=== PATIENT | female | born 1995 | race African-American/Black ===

== ENCOUNTER 2022-06-24 13:17 | Emergency (ER) | payer OTHER ==
--- OUTSIDE RECORDS SUMMARY | 2022-06-24 13:21 | XMS REPORT | Continuity of Care Document ---
:1995 Author Organization [facility] t Address [address] [facility] [address] [place] [id number] Care Team Providers Name Role Phone Pcp, Patient Does Not Have A Primary Care Physician [phone] YUMIKO MISTRY Attending Clinician Unavailable Jackie SHINE, Jennifer Attending Clinician Unavailable Miles REGALADO, Felicia Kaur Attending Clinician Mercedes SOUTH, Reina Pierce Attending Clinician Jerson SOUTH, Cinda Collins Attending Clinician Doctor Unassigned, [place] Attending Clinician Unavailable Jimmy Perez DO Attending Clinician Sherwin SOUTH, Coty Rodriguez Attending Clinician Lab, Adc Fam Pob I Attending Clinician Unavailable Yolanda Chowdhury Attending Clinician YOLANDA MARSH Attending Clinician Unavailable Bri Beaulieu MD Attending Clinician BRI BEAULIEU Attending Clinician Unavailable Cinda Arthur MD Admitting Clinician Payers Payer Name Policy Type Policy Number Effective Date Expiration Date S ourkrysta MEDICAID PENDING PENDING 2020 00:00:00 [place] [id number] 2019 WOMEN 00:00:00 Problems Condition Condition Condition Status Onset Resolution Last Treating Co mments Source Name Details Category Date Date Treatment Clinician Date Abdominal Abdominal Disease Active 2020-04 Uni vers pain pain 0-07 ity of 00:00: [place] [address] Medical Branch Pelvic Pelvic Disease Active 2020-04 Univers pain pain 0-06 ity of 00:00: [place] [address] Medical Branch Hydrosalpi Hydrosalpi Disease Active 2020-04 U nivers nx nx 0-06 ity of 00:00: [place] 00 Medical Branch PID (acute PID (acute Disease Active 2020-04 U nivers pelvic pelvic 0-06 it[place] inflammat[place] disease) disease) Branch Other Other Disease Active Overview: Univer s specified specified 08-22 Formattin i ty of anemias anemias 00:00: g of this [place] 00 note Medical might be Branch different from the original. 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 Lump or Lump or Disease Active Univers mass in mass in 08-21 ity of breast breast 00:00: [place] 00 Medical Branch Other and Other and Disease Active Uni vers unspecifie unspecifie 08-21 it y of d ovarian d ovarian 00[place] cyst cyst 00 [facility] Branch Allergies, Adverse Reactions, Alerts Allergy Allergy Status Severity Reaction(s) Onset Inactive Treating Comm ents Source Name Type Date Date Clinician NO KNOWN Drug Active Univers ALLERGIE Class ity of S [facility] Social History Social Habit Start Date Stop Date Quantity Comments Source History of Cigarette Smoker Universi ty of tobacco use [facility] Exposure to Not sure [place] of SARS-CoV-2 [facility] (event) Branch Alcohol intake 2021-01-19 2021-01-19 Current University of 00:00:00 00:00:00 non-drinker of [facility] alcohol (finding) Branch Tobacco use and 2015-05-16 2015-05-16 Never used Universit y of exposure 00:00:00 00:00:00 [facility] Sex Ass[birth year] At [birth year] Universit y of 00:00:00 00:00:00 [facility] Smoking Status Start Date Stop Date Source Current every day smoker 2015-05-16 00:00:00 Uni versity of [facility] Medications Ordered Filled Start Stop Current Ordering Indication Dosage Frequency Signature Comments Components Source Medication Medication Date Date Medication? Clinician (SIG) Name Name ascorbic 2020-04 Yes 500mg 500 mg, Unive rs acid 0-08 Oral, ity of (vitamin C) 14:00: [place] (VITAMIN C) 00 First dose Me dical tablet 500 on Sun Branch mg 01/21/21 at 0900, Until Discontinu ed, Routine metroNIDAZO 2020-04 Yes 500mg 500 mg, Un lashell LE (FLAGYL) 0-08 Oral, ity of tablet 500 13:30: Q12H, [place] mg 00 First dose Medical on Sun Branch 01/21/21 at 0830, Until Discontinu ed, Routine
Reason for Anti-Infec tive: Documented Infection< br>Documen lara Infection Site: Pelvic
Duration of Therapy: Other (see Comments) ibuprofen 2020-04 Yes [id number] 600mg Take 1 U nivers 600 mg 0-08 tablet by ity of tablet 00:00: mouth [place] 00 every 6 Medical (six) Branch hours as needed for Pain (scale 1-3). ferrous 2020-04 Yes [id number] 325mg Take 1 Uni vers sulfate 0-08 tablet by ity of (IRON) 325 00:00: mouth [place] mg (65 mg 00 daily. Medical iron) Branch tablet ascorbic 2020-04 Yes [id number] 500mg Take 1 Un lashell acid, 0-08 tablet by ity of vitamin C, 00:00: mouth [place] (VITAMIN C) 00 daily. Medica l 500 mg Branch tablet ibuprofen 2020-04 Yes [id number] 600mg Take 1 U nivers 600 mg 0-08 tablet by ity of tablet 00:00: mouth [place] 00 every 6 Medical (six) Branch hours as needed for Pain (scale 1-3). ferrous 2020-04 Yes [id number] 325mg Take 1 Uni vers sulfate 0-08 tablet by ity of (IRON) 325 00:00: mouth [place] mg (65 mg 00 daily. Medical iron) Branch tablet ascorbic 2020-04 Yes [id number] 500mg Take 1 Un lashell acid, 0-08 tablet by ity of vitamin C, 00:00: mouth [place] (VITAMIN C) 00 daily. Medica l 500 mg Branch tablet doxycycline 2020-04- No [id number] 100mg Take 1 Univers hyclate 100 0-08 - capsule by i ty of mg capsule 00:00: 04:59 mouth [place] 00 :00 every 12 Medical (twelve) Branch hours for 13 days. metroNIDAZO 2020-04 No [id number] 500mg Take 1 Univers LE 500 mg 0-08 10-22 tablet by ity of tablet 00:00: 04:59 mouth [place] 00 :00 every 12 Medical (twelve) Branch hours for 13 days. doxycycline 2020-04- No [id number] 100mg Take 1 Univers hyclate 100 0-08 10-22 capsule by i ty of mg capsule 00:00: 04:59 mouth [place] 00 :00 every 12 Medical (twelve) Branch hours for 13 days. metroNIDAZO 2020-04- No [id number] 500mg Take 1 Univers LE 500 mg 0-08 10-22 tablet by ity of tablet 00:00: 04:59 mouth [place] 00 :00 every 12 Medical (twelve) Branch hours for 13 days. docusate 2020-04 No 100mg 100 mg, Univ ers (COLACE) 0-07 10-08 Oral, ity of capsule 100 22:45: 13:12 DAILY, [place] mg 00 :40 First dose Medical on [facility] Branch 01/20/21 at 1745, Until Discontinu ed, Routine oxyCODONE-a 2020-04 Yes 1{tbl} 1 tablet, Univers cetaminophe 0-07 Oral, ity of n 14:53: [facility], [place] (PERCOCET) 46 Starting Medic al 5-325 mg on [facility] Branch per tablet 01/20/21 at 1 tablet 0953, Until Discontinu ed, Routine, Pain (scale 7-10) ibuprofen 2020-04 Yes 600mg 600 mg, Univ ers (IBU) 0-07 Oral, ity of tablet 600 14:06: Q6HPRN, [place] mg 45 Starting Medical on [facility] Branch 01/20/21 at 0906, Until Discontinu ed, Routine, Pain (scale 4-6) acetaminoph 2020-04 Yes 650mg 650 mg, Un lashell en 0-07 Oral, ity of (TYLENOL) 14:06: Q6HPN, [place] tablet 650 13 Starting Medic al mg on [facility] Branch 01/20/21 at 0906, Until Discontinu ed, Routine, Pain (scale 1-3) doxycycline 2020-04 Yes 100mg 100 mg, Un lashell hyclate 0-07 Oral, ity of (Vibramycin 14:00: Q12H, [place] ) capsule 00 First dose Medi herlinda 100 mg (after Branch last reorder) on C[place] 01/20/21 at 0900, Until Discontinu ed, MIGUELITO
Reason for Anti-Infec tive: Empiric Therapy for Suspected Infection< br>Empiric Therapy Site: Pelvic
Duration of therapy: 72 hours ferrous 2020-04 Yes 325mg 325 mg, Univer s sulfate 0-07 Oral, TID ity of tablet 325 13:00: MEALS, [place] mg 00 First dose Medical on [place] Branch 01/20/21 at 0800, Until Discontinu ed, Routine cefOXitin 2020-04 Yes 2g 2 g, IV Unive rs in 0-07 Piggyback, ity of dextrose, 08:00: Q6H ABX, [place] iso-osm 00 First dose Medica l (MEFOXIN) 2 (after Branch gram/50 mL last DUPLEX BAG modificati 2 g on) on [place] 01/20/21 at 0300, Until Discontinu ed, Administer over 30 Minutes, 50 mL
Reas on for Anti-Infec tive: Empiric Therapy for Suspected Infection< br>Empiric Therapy Site: Pelvic
Duration of therapy: 72 hours NaCl 0.9% 2020-04 No 500mL at 999 Univ ers (NS) bolus 0-07 10-07 mL/hr, 500 it y of infusion 04:15: 03:16 mL, IV [place] 500 mL 00 :00 Infusion, Medical ONCE, 1 Branch dose, On Sun01/19/21 at 2315, STAT doxycycline 2020-04- No 100mg 100 mg, U nivers hyclate 0-07 10-07 Oral, ity of (Vibramycin 02:30: 02:07 ONCE, 1 [place] capsule 00 :00 dose, On Medica l 100 mg [facility] 01/19/21 at 2130, MIGUELITO
Re ason for Anti-Infec tive: Empiric Therapy for Suspected Infection< br>Empiric Therapy Site: Pelvic
Duration of therapy: 72 hours cefOXitin 2020-04- No 2g 2 g, IV Univ ers in 001-20 Piggyback, ity of dextrose, 02:30: 02:15 Q6H ABX, [place] iso-osm 00 :47 First dose Medica l (MEFOXIN) 2 on Sun Branch gram/50 mL 01/19/21 at DUPLEX BAG 2130, 2 g Until Discontinu ed, Administer over 30 Minutes, 50 mL
Reas on for Anti-Infec tive: Empiric Therapy for Suspected Infection< br>Empiric Therapy Site: Pelvic
Duration of therapy: 72 hours ondansetron 2020-04 Yes 4mg 4 mg, Slow Univers (ZOFRAN 0-07 IV Push, ity of (PF)) 02:14: Q6RN, [place] injection 4 56 Starting Medi herlinda mg on Sun Branch 01/19/21 at 2114, Until Discontinu ed, Routine, Nausea and Vomiting (N/V) ibuprofen 2020-04- No 800mg 800 mg, Uni vers (IBU) 001-20 Oral, ity of tablet 800 02:14: 14:06 Q8HPRN, [place] mg 44 :55 Starting Medical on Sun Branch 01/19/21 at 2114, Until [place] 01/20/21 at 0906, Routine, Pain (scale 1-3) oxyCODONE-a 2020-04- No 1{tbl} 1 tablet, Univers cetaminophe 001-20 Oral, ity of n 02:14: 14:53 [facility], [place] (PERCOCET) 03 :56 Starting Medic al 5-325 mg on Sun per tablet 01/19/21 at 1 tablet 2113, Until [place] 01/20/21 at 0953, Routine, Pain (scale 4-6), Pain (scale 7-10) FENTanyl PF 2020-04- No 50ug 50 mcg, Un lashell (SUBLIMAZE 001-20 Slow IV ity o f (PF)) 01:45: 01:01 Push, [place] injection 00 :00 ONCE, 1 Medical 50 mcg dose, On Branch Sun01/19/21 at 2045, Routine ketorolac 2020-04- No 30mg 30 mg, Unive rs (TORADOL) 0-06 10-06 Slow IV ity of injection 20:30: 19:34 Push, [place] 30 mg 00 :00 ONCE, 1 Medical dose, On Branch 01/19/21 at 1530, Routine
field artillery crewmember approving Restricted medication : FELICIA CALDERON NaCl 0.9% 2020-04- No 500mL at 999 Univ ers (NS) bolus 0- 10-06 mL/hr, 500 it y of infusion 20:30: 20:20 mL, IV [place] 500 mL 00 :00 Piggyback, Medical ONCE, 1 Branch dose, On Sun01/19/21 at 1530, STAT iopamidol 2020-04- No [id number] 100mL 100 mL, Univers (ISOVUE 0- Intravenou ity o f 370-500 mL) 20:02: 20:02 s, ONCE, 1 [place] injection 00 :00 dose, On Medica l 100 mL Wed Branch 01/19/21 at 1515, Routine chlorhexidi Yes [id number] 15mL Swish and Univers ne 0.12 % 8-04 spit out ity of mouthwash 00:00: 15 mL 2 [place] 00 (two) Medical times Branch daily. acetaminoph 0 Yes [id number] 1{tbl} Take 1 Un lashell en-codeine 8-04 tablet by ity of 300-30 mg 00:00: mouth [place] tablet 00 every 4 Medical (four) Branch hours as needed for Pain (scale 7-10). Indication s: acute pain chlorhexidi 0 Yes [id number] 15mL Swish and Univers ne 0.12 % 8-04 spit out ity of mouthwash 00:00: 15 mL 2 [place] 00 (two) Medical times Branch daily. acetaminoph 0 Yes [id number] 1{tbl} Take 1 Un lashell en-codeine 8-04 tablet by ity of 300-30 mg 00:00: mouth [place] tablet 00 every 4 Medical (four) Branch hours as needed for Pain (scale 7-10). Indication s: acute pain chlorhexidi 2020- No [id number] 15mL Swish and Univers ne 0.12 % 8-04 10-06 spit out ity o f mouthwash 00:00: 00:00 15 mL 2 [place] 00 :00 (two) Medical times Branch daily. acetaminoph 2020- No [id number] 1{tbl} Take 1 U nivers en-codeine 11-17 tablet by ity of 300-30 mg 00:00: 00:00 mouth [place] tablet 00 :00 every 4 Medical (four) Branch hours as needed for Pain (scale 7-10). Indication s: acute pain clindamycin 2020- No [id number] 300mg Take 2 Univers 150 mg 11-17 08-12 capsules ity of capsule 00:00: 04:59 by mouth 4 [place] 00 :00 (four) Medical times Branch daily for 7 days. iohexol 2019- No 120mL 120 mL, Unive rs (OMNIPAQUE 11-07 Intravenou it y of 350 17:45: 17:28 s, ONCE, 1 [place] BULK-150 00 :00 dose, Sat Medica l mL) 11/08/19 at Branch injection 1245, 120 mL Routine ondansetron 2019- No 4mg 4 mg, Slow Univers (ZOFRAN 11-07 IV Push, ity of (PF)) 16:45: 15:53 ONCE, 1 [place] injection 4 00 :00 dose, Sat Med ical mg 11/08/19 at Branch 1145, MIGUELITO ketorolac 2019- No 15mg 15 mg, Unive rs (TORADOL) 11-07 Slow IV ity of injection 16:45: 15:53 Push, [place] 15 mg 00 :00 ONCE, 1 Medical dose, Sat Branch 11/08/19 at 1145, MIGUELITO
Fa culty member approving Restricted medication : COTY MOROCHO morpHINE 2019- No 4mg 4 mg, Slow Un lashell injection 4 11-07 IV Push, ity of mg 16:45: 15:53 ONCE, 1 [place] 00 :00 dose, Sat Medical 11/08/19 at Branch 1145, STAT acetaminoph 2019- No 650mg 650 mg, U nivers en 11-07 Oral, ity of (TYLENOL) 16:45: 15:52 ONCE, 1 [place] tablet 650 00 :00 dose, Sat Medi herlinda mg 11/08/19 at Branch 1145, MIGUELITO cefTRIAXone 2019-2019- No 1000mg 1,000 mg, Univers (ROCEPHIN) 11-07 07-25 IV ity of 1,000 mg in 16:45: 16:34 [place], [place] NaCl 0.9% 00 :00 ONCE, 1 Medical (NS) 50 mL dose, Sat Bran ch MINI-BAG 11/08/19 at 1145, 50 mL
Reas on for Anti-Infec tive: Empiric Therapy for Suspected Infection< br>Empiric Therapy Site: Urine
D uration of therapy: 72 hours NaCl 0.9% 2019- No 30mL/kg at 999 Un lashell (NS) bolus 11-07 07-25 mL/hr, ity of infusion 15:45: 19:57 1,482 mL [place] 1,482 mL 00 :00 (30 mL/kg Medica l ?49.4 kg), Branch IV Infusion, ONCE, 1 dose, 11/08/19 at 1045, MIGUELITO ondansetron 2020-0 Yes [id number] 4mg Take 1 Univers 4 mg tablet 7-25 tablet by ity of 00:00: mouth [place] 00 every 8 Medical (eight) Branch hours as needed for Nausea and Vomiting (N/V). ondansetron 2020-0 Yes [id number] 4mg Take 1 Univers 4 mg tablet 7-25 tablet by ity of 00:00: mouth [place] 00 every 8 Medical (eight) Branch hours as needed for Nausea and Vomiting (N/V). ondansetron 2020-0 Yes [id number] 4mg Take 1 Univers 4 mg tablet 7-25 tablet by ity of 00:00: mouth [place] 00 every 8 Medical (eight) Branch hours as needed for Nausea and Vomiting (N/V). ondansetron 2020-0 2020- No [id number] 4mg Take 1 Univers 4 mg tablet 7-25 10-06 tablet by it y of 00:00: 00:00 mouth [place] 00 :00 every 8 Medical (eight) Branch hours as needed for Nausea and Vomiting (N/V). levoFLOXaci 2020-0 2019- No [id number] 500mg Take 1 Univers n 500 mg 7-25 08-05 tablet by ity o f tablet 00:00: 04:59 mouth [place] 00 :00 every 24 Medical (twenty-fo Branch ur) hours for 10 days. traMADol 50 2020-0 2020- No [id number] 50mg Take 1 Uni vers mg tablet 11-07 tablet by ity of 00:00: 04:59 mouth [place] 00 :00 every 6 Medical (six) Branch hours as needed (pain) for up to 7 days. Indication s: acute pain HYDROcodone 2020-0 2020- No 1{tbl} 1 tablet, Univers -acetaminop 6-16 -16 Oral, ONCE i ty of hen (NORCO) 19:30: 18:36 NOW, 1 [place] 10-325 mg 00 :00 dose, Tue Medic al tablet 1 09/30/19 at [facility] h tablet 1430, Routine ibuprofen 2020-0 Yes [id number] 800mg Take 1 Univers 800 mg 6-16 tablet by ity of tablet 00:00: mouth [place] 00 every 8 Medical (eight) Branch hours as needed for Pain (scale 4-6). ibuprofen 2020-0 Yes [id number] 800mg Take 1 Univers 800 mg 6-16 tablet by ity of tablet 00:00: mouth [place] 00 every 8 Medical (eight) Branch hours as needed for Pain (scale 4-6). amoxicillin 2020-0 Yes [id number] 500mg Take 1 Univers 500 mg 6-16 capsule by ity of capsule 00:00: mouth 3 [place] 00 (three) Medical times Branch daily. acetaminoph 2020-0 Yes [id number] 1{tbl} Take 1 Univers en-codeine 6-16 tablet by ity of (TYLENOL-CO 00:00: mouth [place] DEINE #3) 00 every 4 Medical 300-30 mg (four) Branch tablet hours as needed for Pain (scale 7-10). ibuprofen 2020-0 Yes [id number] 800mg Take 1 Univers 800 mg 6-16 tablet by ity of tablet 00:00: mouth [place] 00 every 8 Medical (eight) Branch hours as needed for Pain (scale 4-6). amoxicillin 2020-0 Yes [id number] 500mg Take 1 Univers 500 mg 6-16 capsule by ity of capsule 00:00: mouth 3 [place] 00 (three) Medical times Branch daily. acetaminoph 2020-0 Yes [id number] 1{tbl} Take 1 Univers en-codeine 6-16 tablet by ity of (TYLENOL-CO 00:00: mouth [place] DEINE #3) 00 every 4 Medical 300-30 mg (four) Branch tablet hours as needed for Pain (scale 7-10). ibuprofen 2020-0 Yes [id number] 800mg Take 1 Univers 800 mg 6-16 tablet by ity of tablet 00:00: mouth [place] 00 every 8 Medical (eight) Branch hours as needed for Pain (scale 4-6). amoxicillin 2020-0 Yes [id number] 500mg Take 1 Univers 500 mg 6-16 capsule by ity of capsule 00:00: mouth 3 [place] 00 (three) Medical times Branch daily. acetaminoph 2020-0 Yes [id number] 1{tbl} Take 1 Univers en-codeine 6-16 tablet by ity of (TYLENOL-CO 00:00: mouth [place] DEINE #3) 00 every 4 Medical 300-30 mg (four) Branch tablet hours as needed for Pain (scale 7-10). ibuprofen 2020-0 Yes [id number] 800mg Take 1 Univers 800 mg 6-16 tablet by ity of tablet 00:00: mouth [place] 00 every 8 Medical (eight) Branch hours as needed for Pain (scale 4-6). ibuprofen 2020-0 Yes [id number] 800mg Take 1 Univers 800 mg 6-16 tablet by ity of tablet 00:00: mouth [place] 00 every 8 Medical (eight) Branch hours as needed for Pain (scale 4-6). ibuprofen 2020-0 2020- No [id number] 800mg Take 1 Univers 800 mg 6-16 10-06 tablet by ity of tablet 00:00: 00:00 mouth [place] 00 :00 every 8 Medical (eight) Branch hours as needed for Pain (scale 4-6). amoxicillin 2020-0 2020- No [id number] 500mg Take 1 Univers 500 mg 6-16 07-25 capsule by ity of capsule 00:00: 00:00 mouth 3 [place] 00 :00 (three) Medical times Branch daily. acetaminoph 2020-0 2020- No [id number] 1{tbl} Take 1 Univers en-codeine 6-16 07-25 tablet by ity of (TYLENOL-CO 00:00: 00:00 mouth [place] DEINE #3) 00 :00 every 4 Medical 300-30 mg (four) Branch tablet hours as needed for Pain (scale 7-10). Immunizations Ordered Filled Immunization Date Status Comments Sourc e Immunization Name Name [facility] 2010-11-21 Completed University of 00:00:00 [facility] 2010-11-21 Completed University of 00:00:00 [facility] Branch TDAP 2010-11-21 Completed University of 00:00:00 [facility] Branch TDAP 2010-11-21 Completed University of 00:00:00 [facility] Branch [facility] 2010-11-21 Completed University of 00:00:00 [facility] 2010-11-21 Completed University of 00:00:00 [facility] Branch TDAP 2010-11-21 Completed University of 00:00:00 [facility] 2010-11-21 Completed University of 00:00:00 [facility] Vital Signs Vital Name Observation Time Observation Value Comments Source Systolic blood 2021-01-21 16:22:00 115 mm[Hg] Univer sity of pressure [facility] Diastolic blood 2021-01-21 16:22:00 75 mm[Hg] Unive rsity of [facility] Heart rate 2021-01-21 16:22:00 94 /min [facility] Body temperature 2021-01-21 16:22:00 36.61 Ela [facility] rate 2021-01-21 16:22:00 18 /min [facility] Oxygen saturation in 2021-01-21 16:22:00 98 /min [facility] Arterial blood by [facility] Pulse oximetry Branch Body height 2021-01-20 04:22:00 160 cm [facility] Body weight 2021-01-20 04:22:00 52.98 kg [facility] BMI 2021-01-20 04:22:00 20.69 kg/m2 [facility] Systolic blood 2020-11-17 22:34:00 112 mm[Hg] Univer sity of pressure [facility] Diastolic blood 2020-11-17 22:34:00 86 mm[Hg] Unive rsity of pressure [facility] Heart rate 2020-11-17 22:34:00 105 /min [facility] Body temperature 2020-11-17 22:34:00 37.22 Ela Univ ersity of [place] [facility] Respiratory rate 2020-11-17 22:34:00 18 /min Univ ersity of [place] [facility] Body weight 2020-11-17 22:34:00 56.7 kg Universi ty of [place] [facility] BMI 2020-11-17 22:34:00 24.17 kg/m2 [facility]i ty [facility] [place] [facility] Oxygen saturation in 2020-11-17 22:34:00 98 /min University of Arterial blood by [place] [employer] herlinda Pulse oximetry Branch Systolic blood 2019-11-08 19:05:00 105 mm[Hg] Univer sity of pressure [place] [facility] Diastolic blood 2019-11-08 19:05:00 76 mm[Hg] Unive rsity of pressure [place] [facility] Heart rate 2019-11-08 19:05:00 86 /min Universi ty [facility] [place] [facility] Respiratory rate 2019-11-08 19:05:00 20 /min Univ ersity of [place] [facility] Oxygen saturation in 2019-11-08 19:05:00 100 /min University of Arterial blood by [place] [employer] herlinda Pulse oximetry Branch Body temperature 2019-11-08 16:57:49 37.39 Ela Univ ersity of [place] [facility] Body weight 2019-11-08 15:34:00 49.442 kg Universi ty [facility] [place] [facility] BMI 2019-11-08 15:34:00 21.08 kg/m2 [facility]i [facility] [place] [facility] Systolic blood 2019-09-30 18:35:00 127 mm[Hg] Univer sity of pressure [place] [facility] Diastolic blood 2019-09-30 18:35:00 79 mm[Hg] Unive rsity of pressure [place] [facility] Heart rate 2019-09-30 18:35:00 75 /min [facility]i ty [facility] [place] [facility] Body temperature 2019-09-30 18:35:00 37.28 Ela Univ ersity of [place] [facility] Respiratory rate 2019-09-30 18:35:00 16 /min Univ ersity of [place] [facility] Oxygen saturation in 2019-09-30 18:35:00 100 /min University of Arterial blood by [facility] herlinda Pulse oximetry Branch Body height 2019-09-30 17:04:00 153.2 cm [facility]i ty [facility] [place] [facility] Body weight 2019-09-30 17:04:00 54.432 kg [facility]i [facility] [place] [facility] BMI 2019-09-30 17:04:00 23.20 kg/m2 [facility] Procedures Procedure Date / Time Performing Clinician Source Performed CBC WITH DIFF 2021-01-21 08:54:00 George Pink [facility] CBC WITH DIFF 2021-01-20 09:57:00 Reina Long [facility] HEPATITIS B SURFACE 2021-01-20 02:06:00 Felicia Calderon [facility] ANTIGEN [facility] HCV ANTIBODY 2021-01-20 02:06:00 Felicia Calderon [facility] ADC OR WILLEM ONLY - RPR 2021-01-20 02:06:00 Felicia Calderon [facility] HIV 1/2 AG-AB WITH REFLEX 2021-01-20 02:06:00 Felicia Calderon [facility] COVID-19 (ID NOW RAPID 2021-01-20 02:06:00 Felicia Calderon [facility] TESTING) Medical Branch LAB ONLY COVID 2021-01-20 02:06:00 Felicia Calderon [facility] INTERPRETATION [facility] GC & CHLAMYDIA AMPLIFIED 2021-01-20 01:02:00 [facility] US OVARY TORSION 2021-01-20 00:10:00 Felicia Calderon [facility] CT ABDOMEN PELVIS W 2021-01-19 20:06:48 Felicia Calderon [facility] CONTRAST [facility] COMP. METABOLIC PANEL 2021-01-19 19:29:00 Felicia Calderon [facility] ([id number]) [facility] CBC WITH DIFF 2021-01-19 19:29:00 Felicia Calderon [facility] URINALYSIS 2021-01-19 18:51:00 Jimmy Perez [facility] POCT TEST 2021-01-19 18:51:00 Jimmy Perez [facility] CONSENT/REFUSAL FOR 2021-01-19 18:35:13 Doctor Unasswally, [facility] DIAGNOSIS AND TREATMENT [place] [facility] NOTICE OF PRIVACY 2020-11-17 22:29:56 Doctor Unacori, [facility] [place] [facility] Branch CONSENT/REFUSAL FOR 2020-11-17 22:29:36 Doctor Romero [facility] DIAGNOSIS AND TREATMENT [place] Medical Branch LACTIC ACID WHOLE BLOOD 2019-11-08 18:53:00 [place]y Morocho [facility] CT ABDOMEN PELVIS W 2019-11-08 17:30:17 Coty Morocho [facility] CONTRAST [facility] LACTIC ACID WHOLE BLOOD 2019-11-08 15:56:00 [place] Mor[place]o [facility] [facility] LIPASE 2019-11-08 15:52:00 Coty Morocho [facility] HEPATIC FUNCTION PANEL 2019-11-08 15:52:00 Coty Morocho [facility] ([id number]) (ALB,T.PRO,BILI Medical Branch T,BU/BC,ALT,AST,ALK PHOS) BASIC METABOLIC PANEL 2019-11-08 15:52:00 Coty Morocho [facility] (NA, K, CL, CO2, GLUCOSE, Medica l Branch BUN, CREATININE, CA) CBC WITH DIFF 2019-11-08 15:52:00 Coty Morocho [facility] URINALYSIS 2019-11-08 15:51:00 Coty Morocho [facility] POCT TEST 2019-11-08 15:47:00 Coty Morocho [facility] NOTICE OF PRIVACY 2019-11-08 15:10:13 Doctor Romero [facility] [place] [facility] CONSENT/REFUSAL FOR 2019-11-08 15:10:03 Doctor Romero [facility] DIAGNOSIS AND TREATMENT [place] [facility] [place] NOTICE OF PRIVACY 2019-09-30 16:51:33 Doctor Heather [facility] [place] [facility] CONSENT/REFUSAL FOR 2019-09-30 16:51:04 Doctor Heather [facility] DIAGNOSIS AND TREATMENT [place] [facility] Encounters Start End Encounter Admission Attending Care Care Encounter Source Date/Time Date/Time Type Type Clinicians Facility Department ID 2021-02-15 Emergency [facility] [id number] Univers 04:33:41 [facility] 2021-02-14 Emergency [facility] [id number] Univers 13:14:30 ity of [facility] 2021-02-11 Emergency [facility] [id number] Univers 08:47:55 ity of [facility] 2021-01-25 2021-01-25 Outpatient R FIDELIA, [facility] [id number] Univers 12:45:00 12:45:00 YUMIKO ity o f [facility] 2021-01-22 2021-01-22 Nurse Jennifer Mejia 1.2.840.114 [id number] Univers 00:00:00 00:00:00 Triage KATHYA 350.1.13.10 it y of HOSPITAL 4.2.7.2.686 [place] [id number] [facility] 019 Branch 2021-01-19 2021-01-21 Emergency RobertFelicia manuel Vincent [facility] 1.2.840 .114 [id number] Univers 13:51:00 15:50:00 AdReina arizmendi 350.1.13.10 ity of [place] 4.2.7.2.686 [facility] [phone] [facility] 081 Branch 2021-01-19 2021-01-19 Orders Doctor VALLES 1.2.840.114 [id number] Univers 00:00:00 00:00:00 Only Unassigned, KATHYA 350.1.13.10 ity of [place] [facility] 4.2.7.2.686 [place] [id number] [facility] 009 Branch 2020-11-17 2020-11-17 Emergency Singer [facility] [id number] Univers 17:38:00 18:01:00 Jimmy Maradiaga 350.1.13.10 i ty of [place] 4[facility]2.7.2.686 [facility] [id number] [facility] 084 Branch 2019-11-08 2019-11-08 Emergency Sherwin [facility] 1.2.806.754 [id number] Univers 10:22:55 15:00:00 Coty Maradiaga 350.1.13.10 ity of [place] 4.2.7.2.686 [facility] [phone] [place] 143984 Branch 2019-11-08 2019-11-08 Orders Doctor REENA 1.2.840.114 [id number] Univers 00:00:00 00:00:00 Only Unassigned, KATHYA 350.1.13.10 ity of [place] [facility] 4.2.7.2.686 [place] [id number] [facility] 009 [place] 2019-11-06 2019-11-06 Laboratory Lab, Adc Fam Pob I [facility] 1.2. 840.114 [id number] Univers 15:07:55 15:27:55 Only Yolanda Marsh 350.1.13.10 [place]y of [place] 4.2.7.2.686 [place] [facility] [id number] [address] Office Building [address] 2019-11-06 2019-11-06 Outpatient R MAGNUS [facility] [id number] Univers 15:00:00 15:00:00 YOLANDA ity [facility] 2019-09-30 2019-09-30 Emergency [facility] [id number] Univers 12:01:20 13:45:00 Bri Rivera [place] 350.1.13.10 ity of [place]2.[place] [id number] [facility] 084 [place] 2019-09-30 2019-09-30 Emergency X [facility] ERT [id number] Univers 12:01:20 12:01:20 [facility] Results Test Description Test Time Test Comments Results Result Comments Source CBC WITH DIFF 2021-01-21 09:14:39 Test Item Value Reference Range Interpretation Comme nts WBC (test code = 6690-2) See_Comment [A utomated message] The system which ge nerated this result transmit lara reference range: 4.30 - 1 1.10 10*3/?L. The reference r marcia was not used to interpr et this result as normal/abnor mal. RBC (test code = 789-8) See_Comment [Au tomated message] The system which ge nerated this result transmit lara reference range: 3.93 - 5 .25 10*6/?L. The reference r marcia was not used to interpr et this result as normal/abnor mal. HGB (test code = 718-7) 7.6 g/dL 11.6-15.0 L HCT (test code = 4544-3) 26.9 % 35.7-45.2 L MCV (test code = 787-2) 65.6 fL 80.6-95.5 L MCH (test code = 785-6) 18.5 pg 25.9-32.8 L MCHC (test code = 786-4) 28.3 g/dL 31.6-35.1 L RDW-SD (test code = 78971-3) 45.3 fL 39.0-49.9 RDW-CV (test code = 788-0) 19.5 % 12.0-15.5 H PLT (test code = 777-3) See_Comment [Au tomated message] The system which Trak nerated this result transmit lara reference range: 166 - 35 8 10*3/?L. The reference range was not used to interpret th is result as normal/abnormal . MPV (test code = 04415-2) 9.9 fL 9.5-12.9 IPF % (test code = 1.6 % 1.3-7.7 Platelet count measured by [id number]) fluorescence me thod. NRBC/100 WBC (test code = See_Comment [ Automated message] The 6339030163) system which Trak nerated this result transmit lara reference range: 0.0 - 10 .0 /100 WBCs. The reference r marcia was not used to interpr et this result as normal/abnor mal. NRBC x10^3 (test code = <0.01 See_Comment [Au tomated message] The 9101598839) system which Trak nerated this result transmit lara reference range: 10*3/?L. The reference range was not u sed to interpret this result as normal/abnormal . GRAN MAT (NEUT) % (test code 73.2 % = 770-8) IMM GRAN % (test code = 0.40 % 2067874280) LYMPH % (test code = 736-9) 12.7 % MONO % (test code = 5905-5) 12.6 % EOS % (test code = 713-8) 1.0 % BASO % (test code = 706-2) 0.1 % GRAN MAT x10^3(ANC) (test 5.31 10*3/uL 1.88-7.09 code = 1718605807) IMM GRAN x10^3 (test code = 0.03 10*3/uL 0.00-0.06 7417879875) LYMPH x10^3 (test code = 0.92 10*3/uL 1.32-3.29 L 731-0) MONO x10^3 (test code = 0.91 10*3/uL 0.33-0.92 742-7) EOS x10^3 (test code = 0.07 10*3/uL 0.03-0.39 711-2) BASO x10^3 (test code = <0.03 0.01-0.07 704-7) Lab Interpretation (test Abnormal code = 74457-6) [facility] WITH [id number] 12:04:25 Test Item Value Reference Range Interpretation Comments WBC (test code = See_Comment [Automated 6690-2) message] The sy stem which generated this result transmitted reference range : 4.30 - 11.10 10*3/?L. The reference range was not used to interpret this result as normal/abnormal . RBC (test code = See_Comment L [Automated 789-8) message] The sy stem which generated this result transmitted reference range : 3.93 - 5.25 10*6/?L. The reference range was not used to interpret this result as normal/abnormal . HGB (test code = 7.2 g/dL 11.6-15.0 L 718-7) HCT (test code = 25.7 % 35.7-45.2 L 4544-3) MCV (test code = 66.1 fL 80.6-95.5 L 787-2) MCH (test code = 18.5 pg 25.9-32.8 L 785-6) MCHC (test code = 28.0 g/dL 31.6-35.1 L 786-4) RDW-SD (test code = 45.4 fL 39.0-49.9 15912-9) RDW-CV (test code = 19.4 % 12.0-15.5 H 788-0) PLT (test code = See_Comment [Automated 777-3) message] The sy stem which generated this result transmitted reference range : 166 - 358 10*3/ ?L. The reference r marcia was not used to interpret this result as normal/abnormal . MPV (test code = 10.5 fL 9.5-12.9 32952-0) IPF % (test code = 1.8 % 1.3-7.7 Platelet count 3044977956) measured by fluorescence method. NRBC/100 WBC (test See_Comment [Automat ed code = 4610779170) message] The system which generated this result transmitted reference range : 0.0 - 10.0 /100 WBCs. The refer ence range was not u sed to interpret th is result as normal/abnormal . NRBC x10^3 (test code <0.01 See_Comment [Auto mated = 1896515504) message] The s ystem which generated this result transmitted reference range : 10*3/?L. The reference range was not used to interpret this result as normal/abnormal . GRAN MAT (NEUT) % 71.8 % (test code = 770-8) IMM GRAN % (test code 0.60 % = 9450188523) LYMPH % (test code = 16.1 % 736-9) MONO % (test code = 10.4 % 5905-5) EOS % (test code = 0.8 % 713-8) BASO % (test code = 0.3 % 706-2) GRAN MAT x10^3(ANC) 7.51 10*3/uL 1.88-7.09 H (test code = 4629522704) IMM GRAN x10^3 (test 0.06 10*3/uL 0.00-0.06 code = 6180418524) LYMPH x10^3 (test code 1.68 10*3/uL 1.32-3.29 = 731-0) MONO x10^3 (test code 1.09 10*3/uL 0.33-0.92 H = 742-7) EOS x10^3 (test code = 0.08 10*3/uL 0.03-0.39 711-2) BASO x10^3 (test code 0.03 10*3/uL 0.01-0.07 = 704-7) Lab Interpretation Abnormal (test code = 11170-8) [facility] [id number] 07:35:16 Test Item Value Reference Range Interpretation Comments HCV Ab (test code = 77881-7) Negative HCV Semi-Quantitative (test code = 84264-6) [facility] [id number] 07:17:53 Test Item Value Reference Range Interpretation Comments HBsAg Semi-Quantitative (test code = Negative Negative 5195-3) [facility] - [id number] 05:22:13 Test Item Value Reference Range Interpretation Comments RPR (Qualitative) (test code = Nonreactive Nonreactive 27741-0) Lab Interpretation (test code = Normal 94096-9) [facility] AG-AB WITH [id number] 03:17:03 Test Item Value Reference Range Interpretation Comments HIV Negative Negative Semi-quantitative (test code = 43209-2) DERIAN (test code = Non-reactive for HIV-1 DERIAN) antigen and HIV-1/HIV-2 antibodies. ?No laboratory evidence of HIV infection. ?Repeat in 2-4 weeks if acute HIV infection is suspected. [facility] (97616)2021-01-19 19:53:33 Test Item Value Reference Range Interpretation Comments NA (test code = 135 mmol/L 135-145 3371327072) K (test code = 3.9 mmol/L 3.5-5.0 5084541459) CL (test code = 103 mmol/L 98-108 3156800639) CO2 TOTAL (test code = 25 mmol/L 23-31 2300474741) AGAP (test code = 2-16 6871139698) BUN (test code = 5 mg/dL 7-23 L 0012892535) GLUCOSE (test code = 109 mg/dL 70-110 3256167046) CREATININE (test code = 0.60 mg/dL 0.50-1.04 8058105892) TOTAL BILI (test code = 1.0 mg/dL 0.1-1.4 9957945842) CALCIUM (test code = 9.9 mg/dL 8.6-10.6 6891764886) T PROTEIN (test code = 7.5 g/dL 6.3-8.2 3026029038) ALBUMIN (test code = 4.4 g/dL 3.5-5.0 5037519610) ALK PHOS (test code = 56 U/L 34-122 1859741294) ALTv (test code = 10 U/L 5-35 1742-6) AST(SGOT) (test code = 20 U/L 13-40 2090337440) eGFR (test code = mL/min/1.73m2 2032522873) DERIAN (test code = EDRIAN) Association of Glomerular Filtration Rate (GFR) and Staging of Kidney Disease* + --+ --+ ------+| GFR (mL/min/1.73 m2) ?| With Kidney Damage ?| ?Without Kidney Damage+ --------+ --------+ +| ?>90 ?| ?Stage one ?| ? Normal ?+ ---+ ---+ -------+| ?60-89 ?| ?Stage two ?| ? Decreased GFR ? + --+ --+ ------+| ?30-59 ?| ?Stage three ?| ? Stage three ? + --+ --+ ------+| ?15-29 ?| ?Stage four ? | ? Stage four ?+ ---+ ---+ -------+| ?<15 (or dialysis) ? ?| ?Stage five ? | ? Stage five ?+ ---+ ---+ -------+ *Each stage assumes the associated GFR level has been in effect for at least three months. ?Stages 1 to 5, with or without kidney disease, indicate chronic kidney disease. Notes: Determination of stages one and two (with eGFR >59mL/min/1.73 m2) requires estimation of kidney damage for at least three months as defined by structural or functional abnormalities of the kidney, manifested by either:Pathological abnormalities or Markers of kidney damage (including abnormalities in the composition of the blood or urine or abnormalities in imaging tests). Lab Interpretation Abnormal (test code = 52244-5) [facility] WITH [id number] 19:44:11 Test Item Value Reference Range Interpretation Comments WBC (test code = See_Comment H [Automated 5390-2) message] The system which generated this result transmit lara reference range : 4.30 - 11.10 10*3/?L. The reference range was not used to interpret this result as normal/abnormal . RBC (test code = See_Comment [Automated 789-8) message] The system which generated this result transmit lara reference range : 3.93 - 5.25 10*6/?L. The reference range was not used to interpret this result as normal/abnormal . HGB (test code = 8.6 g/dL 11.6-15.0 L 718-7) HCT (test code = 30.1 % 35.7-45.2 L 4544-3) MCV (test code = 65.6 fL 80.6-95.5 L 787-2) MCH (test code = 18.7 pg 25.9-32.8 L 785-6) MCHC (test code = 28.6 g/dL 31.6-35.1 L 786-4) RDW-SD (test code = 45.2 fL 39.0-49.9 19535-3) RDW-CV (test code = 20.1 % 12.0-15.5 H 788-0) PLT (test code = See_Comment [Automated 777-3) message] The system which generated this result transmit lara reference range : 166 - 358 10*3/ ?L. The reference range was not u sed to interpret th is result as normal/abnormal . MPV (test code = 9.6 fL 9.5-12.9 13062-3) NRBC/100 WBC (test See_Comment [Automat ed code = 3177876218) message] The system which generated this result transmit lara reference range : 0.0 - 10.0 /100 WBCs. The reference range was not used to interpret this result as normal/abnormal . NRBC x10^3 (test code <0.01 See_Comment [Auto mated = 8517046496) message] The system which generated this result transmit lara reference range : 10*3/?L. The reference range was not used to interpret this result as normal/abnormal . GRAN MAT (NEUT) % 82.1 % (test code = 770-8) IMM GRAN % (test code 0.60 % = 9233718339) LYMPH % (test code = 8.1 % 736-9) MONO % (test code = 8.8 % 5905-5) EOS % (test code = 0.1 % 713-8) BASO % (test code = 0.3 % 706-2) GRAN MAT x10^3(ANC) 13.04 10*3/uL 1.88-7.09 H (test code = 9187356897) IMM GRAN x10^3 (test 0.10 10*3/uL 0.00-0.06 H code = 7832436348) LYMPH x10^3 (test code 1.28 10*3/uL 1.32-3.29 L = 731-0) MONO x10^3 (test code 1.40 10*3/uL 0.33-0.92 H = 742-7) EOS x10^3 (test code = <0.03 0.03-0.39 L 711-2) BASO x10^3 (test code 0.05 10*3/uL 0.01-0.07 = 704-7) Lab Interpretation Abnormal (test code = 57929-6) [facility] [id number] 18:51:00 Test Item Value Reference Range Interpretation Comments POCT PREG (test code = 1605) negative On board controls acceptable with present C Line (test code = 3574) POCT PREG LOT # (test code = 3575) [id number] POCT PREG TEST DATE (test 04/15/22 code = 3576) Lab Interpretation (test code = Normal 90955-8) [facility] Whole [id number] 18:58:00 Test Item Value Reference Range Interpretation Comments LACTIC ACID (test code = 0.85 mmol/L 9738771013) [facility] ABDOMEN PELVIS W [id number] 18:33:39 Subtle trabeculated wall thickening of the urinary bladder for the degreeof distention may represent cystitis with patchy irregular enhancement ofthe bilateral renal cortices that may represent superimposed ascendinginfection such as bilateral nephritis. Clinical correlation with CVAtenderness may beuseful. Small volume free fluid with internal density greater than simple fluid mayrepresent ruptured hemorrhagic or corpus luteal cyst or possibly artifactdue to volume averaging/contrast administration. Follow-up ultrasound couldbe considered as clinically indicated. No appendicitis or diverticulitis. Preliminary Report Dictated by Resident: Viky He ?MD. Bradford, have reviewed this study and agree with the abovereport.CT OF THE ABDOMEN AND PELVIS WITH IV CONTRAST HISTORY: Abd pain, appendicitis suspected RLQ abdominal pain; fever; TECHNIQUE: Continuous axial imaging was performed with sagittal and coronalreformatted images after the administration of 120 ccs IV Omnipaque 350. COMPARISON: None FINDINGS: LOWER THORAX: The lung bases are clear.. No pericardial effusion orcardiomegaly. HEPATOBILIARY: Normal size and contour. The gallbladder is unremarkable. Nobiliary dilation.PANCREAS: No focal lesion or ductal dilation. SPLEEN: No splenomegaly. ADRENALS: No adrenal nodules.KIDNEYS: Irregular patchy enhancement of the renal cortices. Nohydronephrosis, focal lesion or stones. ? PELVIS/BLADDER: The bladder is moderately distended with subtle irregularwall thickening for thedegree of distention. Anteverted uterus withhypoattenuating fluid in the endometrial cavity, favoredto be physiologic. GASTROINTESTINAL: No evidence of bowel obstruction or perientericinflammation. The appendix is normal (2:100). PERITONEUM/RETROPERITONEUM: No free air. Small volume fluid with internaldensity slightly greater than simple fluid. VASCULAR: ?Unremarkable. LYMPHATICS: No enlarged lymph nodes by CT size criteria. BONES AND SOFT TISSUES: No concerning bony lesion identified. [facility], Radiant Results Inft User - 11/08/2019 1:34 PM CDTCT OF THE ABDOMEN AND PELVIS WITH IV CONTRASTHISTORY: Abd pain, appendicitis suspected RLQ abdominal pain; fever; TECHNIQUE: Continuous axial imaging was performed with sagittal and coronalreformatted images after the administration of 120 ccs IV Omnipaque 350.COMPARISON: NoneFINDINGS:LOWER THORAX: The lung bases are clear.. No pericardial effusion orcardiomegaly. HEPATOBILIARY: Normal size and contour. The gallbladder is unremarkable. Nobiliary dilation.PANCREAS: No focal lesion or ductal dilation. SPLEEN: No splenomegaly. ADRENALS: No adrenal nodules. KIDNEYS: Irregular patchy enhancement of the renal cortices. Nohydronephrosis, focal lesion or stones. P ERIN/BLADDER: The bladder is moderately distended with subtle irregularwall thickening for the degree of distention. Anteverted uterus withhypoattenuating fluid in the endometrial cavity, favored to be physiologic.GASTROINTESTINAL: No evidence of bowel obstruction or perientericinflammation. The appendix is normal (2:100). PERITONEUM/RETROPERITONEUM: No free air. Small volume fluid with internaldensity slightly greater than simple fluid.VASCULAR: Unremarkable. LYMPHATICS: No enlarged lymph nodes byCT size criteria.BONES AND SOFT TISSUES: No concerning bony lesion identified. IMPRESSIONSubtle trabeculated wall thickening of the urinary bladder for the degreeof distention may represent cystitis with patchy irregular enhancement ofthe bilateral renal cortices that may represent superimposed ascendinginfection such as bilateral nephritis. Clinical correlation with CVAtenderness may be useful.Smallvolume free fluid with internal density greater than simple fluid mayrepresent ruptured hemorrhagic or corpus luteal cyst or possibly artifactdue to volume averaging/contrast administration. Follow-up ultrasound couldbe considered as clinically indicated.No appendicitis or diverticulitis.Preliminary Report Dictated by Resident: Scarlett Churchill, Viky Felder MD., have reviewed this study and agree with the abovereport.[facility] with [id number] 17:26:00 Test Item Value Reference Range Interpretation Comments WBC (test code = See_Comment H [Automated 6690-2) message] The system which generated this result transmit lara reference range : 4.30 - 11.10 10*3/?L. The reference range was not used to interpret this result as normal/abnormal . RBC (test code = See_Comment [Automated 789-8) message] The system which generated this result transmit lara reference range : 3.93 - 5.25 10*6/?L. The reference range was not used to interpret this result as normal/abnormal . HGB (test code = 8.5 g/dL 11.6-15 L 718-7) HCT (test code = 30.3 % 35.7-45.2 L 4544-3) MCV (test code = 63.5 fL 80.6-95.5 L 787-2) MCH (test code = 17.8 pg 25.9-32.8 L 785-6) MCHC (test code = 28.1 g/dL 31.6-35.1 L 786-4) RDW-SD (test code = 43.3 fL 39-49.9 72853-3) RDW-CV (test code = 19.5 % 12-15.5 H 788-0) PLT (test code = See_Comment [Automated 777-3) message] The system which generated this result transmit lara reference range : 166 - 358 10*3/ ?L. The reference range was not u sed to interpret th is result as normal/abnormal . MPV (test code = 9.8 fL 9.5-12.9 23343-1) NRBC/100 WBC (test See_Comment [Automat ed code = 9538997335) message] The system which generated this result transmit lara reference range : 0.0 - 10.0 /100 WBCs. The reference range was not used to interpret this result as normal/abnormal . NRBC x10^3 (test code <0.01 See_Comment [Auto mated = 2087244325) message] The system which generated this result transmit lara reference range : 10*3/?L. The reference range was not used to interpret this result as normal/abnormal . GRAN MAT (NEUT) % 86.5 % (test code = 770-8) IMM GRAN % (test code 1.10 % = 7540845500) LYMPH % (test code = 4.6 % 736-9) MONO % (test code = 7.6 % 5905-5) EOS % (test code = 0.0 % 713-8) BASO % (test code = 0.2 % 706-2) GRAN MAT x10^3(ANC) 17.26 10*3/uL 1.88-7.09 H (test code = 6085679261) IMM GRAN x10^3 (test 0.22 10*3/uL 0-0.06 H code = 3407384096) LYMPH x10^3 (test code 0.92 10*3/uL 1.32-3.29 L = 731-0) MONO x10^3 (test code 1.51 10*3/uL 0.33-0.92 H = 742-7) EOS x10^3 (test code = <0.03 0.03-0.39 L 711-2) BASO x10^3 (test code 0.04 10*3/uL 0.01-0.07 = 704-7) Lab Interpretation Abnormal (test code = 72200-1) [facility]inalysis[facility] 16:50[facility]00 Test Item Value Reference Range Interpretation Comments APPEARANCE (test code = Cloudy Clear A 4069908521) COLOR (test code = Yellow Yellow 9860822151) PH (test code = 4.8-8.0 5749781592) SP GRAVITY (test code = 1.003-1.030 6384219524) GLU U QUAL (test code = Normal Normal 5653284176) BLOOD (test code = Negative Negative 1866849406) KETONES (test code = 5 mg/dL Negative A 3811529711) PROTEIN (test code = 30 mg/dL Negative A 2887-8) UROBILIN (test code = Normal Normal 3080108672) BILIRUBIN (test code = Negative Negative 3668742508) NITRITE (test code = Negative Negative 8378996930) [place] (test code = 500/uL Negative A 0574947878) RBC/HPF (test code = See_Comment H [Autom ated message] 0021142688) The system [employer] generated this result transmitted ref erence range: 0 - 3 HP F. The reference range was not used to int erpret this result as normal/abnormal . WBC/HPF (test code = See_Comment H [Autom ated message] 9829652201) The system [employer] generated this result transmitted ref erence range: 0 - 5 HP F. The reference range was not used to int erpret this result as normal/abnormal . BACTERIA (test code = Many Negative A 4104923303) MUCOUS (test code = Marked Negative LPF A 0958832147) SQ EPITH (test code = HPF 8141319451) HYAL CAST (test code = See_Comment [Aut omated message] 9644477031) The system [employer] generated this result transmitted ref erence range: <=2 LPF. The reference range was not used to int erpret this result as normal/abnormal . Lab Interpretation (test Abnormal code = 62067-4) [facility] Metabolic Panel (NA, K, CL, CO2, GLUCOSE, BUN, CREATININE, CA)2019-11-08 16:49:00 Test Item Value Reference Range Interpretation Comments NA (test code = 135 mmol/L 135-145 4242367600) K (test code = 3.3 mmol/L 3.5-5 L 1642040907) CL (test code = 103 mmol/L 98-108 4066207367) CO2 TOTAL (test code = 22 mmol/L 23-31 L 9287966016) AGAP (test code = 2-16 6963747407) BUN (test code = 7 mg/dL 7-23 6485778237) GLUCOSE (test code = 133 mg/dL 70-110 H 2452315023) CREATININE (test code = 0.60 mg/dL 0.5-1.04 3296030653) CALCIUM (test code = 10.0 mg/dL 8.6-10.6 9973340792) eGFR Calculation mL/min/1.73m2 (Non-) (test code = 7781085723) eGFR Calculation mL/min/1.73m2 () (test code = 3248614649) DERIAN (test code = DERIAN) Association of Glomerular Filtration Rate (GFR) and Staging of Kidney Disease* + --+ --+ ------+| GFR (mL/min/1.73 m2) ?| With Kidney Damage ?| ?Without Kidney Damage+ --------+ --------+ +| ?>90 ?| ?Stage one ?| ? Normal ?+ ---+ ---+ -------+| ?60-89 ?| ?Stage two ?| ? Decreased GFR ? + --+ --+ ------+| ?30-59 ?| ?Stage three ?| ? Stage three ? + --+ --+ ------+| ?15-29 ?| ?Stage four ? | ? Stage four ?+ ---+ ---+ -------+| ?<15 (or dialysis) ? ?| ?Stage five ? | ? Stage five ?+ ---+ ---+ -------+ *Each stage assumes the associated GFR level has been in effect for at least three months. ?Stages 1 to 5, with or without kidney disease, indicate chronic kidney disease. Notes: Determination of stages one and two (with eGFR >59mL/min/1.73 m2) requires estimation of kidney damage for at least three months as defined by structural or functional abnormalities of the kidney, manifested by either:Pathological abnormalities or Markers of kidney damage (including abnormalities in the composition of the blood or urine or abnormalities in imaging tests). Lab Interpretation Abnormal (test code = 20723-4) [facility] (ALB, T.PRO, BILI T, BU/BC, ALT, AST, ALK PHOS)2019-11-08 16:49:00 Test Item Value Reference Range Interpretation Comments TOTAL BILI (test code = 9833968601) 1.1 mg/dL 0.1-1.1 BILI UNCON (test code = 1044571380) 1.4 mg/dL 0.1-1.1 H BILI CONJ (test code = 9249084344) 0.0 mg/dL 0-0.3 T PROTEIN (test code = 2682212614) 7.9 g/dL 6.3-8.2 ALBUMIN (test code = 0509929160) 4.5 g/dL 3.5-5 ALK PHOS (test code = 5866596698) 74 U/L 34-122 ALTv (test code = 1742-6) 9 U/L 5-35 AST(SGOT) (test code = 0265839748) 19 U/L 13-40 Lab Interpretation (test code = Abnormal 91858-7) [facility]Lip[facility] [id number] 16:49:00 Test Item Value Reference Range Interpretation Comments LIPASE (test code = 9965832849) 40 U/L 0-220 Lab Interpretation (test code = Normal 74129-1) [facility] Whole [id number] 16:02:00 Test Item Value Reference Range Interpretation Comments LACTIC ACID (test code = 2.30 mmol/L 1337930254) [facility] [id number] 15:47:00 Test Item Value Reference Range Interpretation Comments POCT PREG (test code = 1605) negative On board controls acceptable with present C Line (test code = 3574) POCT PREG LOT # (test code = 3575) [id number] POCT PREG TEST DATE (test 2020-12-14 code = 3576) Lab Interpretation (test code = Normal 00688-8) [facility]"
[2022-06-24] MEDS ORDERED: ONDANSETRON 4 MG/2 ML VIAL ONE (13:30)
[2022-06-24] MEDS ORDERED: MORPHINE 4 MG/ML SYR ONE ×2 (13:30→14:58)
[2022-06-24 14:02] LABS: Hematocrit 30.4 % (36.0-45.0); MCV 63.1 fL (80-100); MPV 8.6 fL (7.6-11.3); RBC Red Blood Cell Count 4.82 M/uL (3.86-4.86)
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
[2022-06-24 14:34] LABS: Anisocytosis 1+; Blood Morphology Comment NOTED (NOT SEEN); Hypochromasia 2+; Platelet Estimate ADEQ
[2022-06-24] MEDS ORDERED: FENTANYL CITR 100 MCG/2 ML ONE (15:45)
[2022-06-24] MEDS ORDERED: LIDOCAINE 2% MPF 5 ML VIAL ONE (16:38)
[2022-06-24] MEDS ORDERED: DERMABOND SKIN ADHESIVE TOP ONE (16:52)
[2022-06-24 17:34] VITALS: TEMP 97.9
[2022-06-24 17:37] VITALS: O2SAT 100
[2022-06-24 17:38] VITALS: BP 132/69
--- NOTE | 2022-06-26 13:07 | EKG ---
Test Date: 2022-06-24 Test Time: 15:25:38 Medical Laboratory Technologist: JOHNNY MEASUREMENT RESULTS: Intervals: Rate: 89 NC: 130 QRSD: 82 QT: 360 QTc: 438 Sherwood: P: 76 NC: 130 QRS: 89 T: -13 INTERPRETIVE STATEMENTS: Sinus rhythm with marked sinus arrhythmia T wave abnormality, consider inferior ischemia Abnormal ECG No previous ECG available for comparison Electronically Signed On 06-26-22 13:04:06 CDT by Ashish Nunez
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
== END 2022-06-24 17:03 | disposition short-term general hospital (02) ==
LOC: ER 13:17
PROC: 0HQ5XZZ Repair Chest Skin, External Approach (ICD-10-PCS; principal; 2022-06-24)
DX: S21.112A Laceration without foreign body of left front wall of thorax without penetration into thoracic cavity, initial encounter (principal); S22.20XA Unspecified fracture of sternum, initial encounter for closed fracture; S22.029A Unspecified fracture of second thoracic vertebra, initial encounter for closed fracture; S22.049A Unspecified fracture of fourth thoracic vertebra, initial encounter for closed fracture; S22.039A Unspecified fracture of third thoracic vertebra, initial encounter for closed fracture; S27.321A Contusion of lung, unilateral, initial encounter; V49.59XA Passenger injured in collision with other motor vehicles in traffic accident, initial encounter
CPT/HCPCS: 93005; 85025; 80048; 36415; 84703; 70450; 72125; 71260; 74177; 96375; 96374; 99284; 12002; Q9967; J2001; J3010; J2405